=== PATIENT | female | born 1955 | race Caucasian/White ===

== ENCOUNTER 2021-02-12 10:34 | Outpatient (REF) | payer OTHER, SELFPAY ==
[2021-02-12 10:46] LABS: MANUAL DIFF FLAG NO
[2021-02-12 10:53] LABS: Basophils Absolute Auto 0.1 X10*3/uL (0.0-0.2); Basophils Percent Auto 0.8 % (0-2); Eosinophils Absolute Auto 0.1 X10*3/uL (0.0-0.4); Eosinophils Percent Auto 1.4 % (0-4); Hematocrit 44.8 % (37-47); Hemoglobin 14.6 g/dl (12.0-16.0); Imm Gran Abs Auto 0.02 X10*3/uL (0.00-0.03); Imm Gran Pct Auto 0.3 % (0.0-0.4); Lymphocytes Absolute Auto 2.3 X10*3/uL (1.2-4.9); Lymphocytes Percent Auto 32.2 % (20-40); Mean Corpuscular HGB Conc 32.6 g/dl (31.0-35.0); Mean Corpuscular Hemoglobin 30.2 pg (27.0-33.0); Mean Corpuscular Volume 92.6 fL (80-98); Mean Platelet Volume 10.3 fL (9.4-12.3); Monocytes Absolute Auto 0.7 X10*3/uL (0.1-1.2); Neutrophils Absolute Auto 4.1 X10*3/uL (2.0-8.3); Neutrophils Percent Auto 56.3 % (45-73); Platelet Count 309 X10*3/uL (160-400); Red Blood Count 4.84 X10*6/uL (4.20-5.50); Red Cell Distribution Width 12.1 % (11.0-16.0); White Blood Count 7.2 X10*3/uL (4.8-10.8)
[2021-02-12 10:58] LABS: Estimated Average Glucose 134 mg/dL; Hemoglobin A1c % 6.3 %
[2021-02-12 11:06] LABS: Glucose Urine UA NEG (NEG); Leukocyte Esterase Urine NEG (NEG); Nitrite Urine NEG (NEG); Specific Gravity - Urine 1.015 (1.005-1.025); Urine Blood NEG (NEG); Urine Ketones NEG (NEG); Urine Protein NEG (NEG-TRACE)
[2021-02-12 11:12] LABS: Appearance Urine CLEAR; Color Urine YELLOW
[2021-02-12 11:52] LABS: Creatinine Urine 63.53 mg/dL; Microalbumin Urine < 5.0 mg/L
[2021-02-12 11:58] LABS: Alanine Aminotransferase 18 U/L (0-31); Alkaline Phosphatase 79 U/L (39-117); Anion Gap 15 (12-20); Aspartate Amino Transferase 17 U/L (5-31); Bilirubin Total 0.4 mg/dL (0.0-1.0); Blood Urea Nitrogen 13 mg/dL (9-16); Calcium 9.7 mg/dL (8.4-10.2); Carbon Dioxide 28 mmol/L (22-29); Chloride 102 mmol/L (96-108); Cholesterol 218 mg/dL; Estimated Glomerular Filt Rate > 60; Glucose Fasting 131 mg/dL (60-99); HDL Cholesterol 49 mg/dL; LDL Cholesterol Calculated 134 mg/dl; Potassium 4.2 mmol/L (3.3-5.1); Sodium 141 mmol/L (135-145); Total Protein 7.7 g/dL (6.5-8.0); Triglycerides 178 mg/dL
== END 2021-02-12 10:35 | disposition home or self-care (01) ==
LOC: HO.LNP 10:34
PROVIDERS: PCP Internal Medicine; Visit Provider Internal Medicine
DX: Z00.00 Encounter for general adult medical examination without abnormal findings (principal); I10 Essential (primary) hypertension; E55.9 Vitamin D deficiency, unspecified; E11.9 Type 2 diabetes mellitus without complications; E78.00 Pure hypercholesterolemia, unspecified
CPT/HCPCS: 80053; 80061; 81003; 82043; 82306; 83036; 85025

== ENCOUNTER 2021-05-11 15:14 | Outpatient (REF) | payer OTHER, SELFPAY ==
--- NOTE | ~2021-05-11 | XR_ITS ---
EXAMINATION: XR HAND, RIGHT CLINICAL INFORMATION: Injury COMPARISON: None TECHNIQUE: PA, lateral, and oblique views of the right hand. FINDINGS: Bone alignment is normal. No fracture or dislocation is seen. There is arthritis at the first CARE HOME joint and IP joints with joint space narrowing and osteophyte formation. There may be faint soft tissue calcification or ossification adjacent to the first metacarpal bone. Soft tissues are otherwise unremarkable. XR/XR hand RT min 3V IMPRESSION: No fracture or dislocation. Arthritis at the first CARE HOME joint and IP joints.
== END 2021-05-11 15:15 | disposition home or self-care (01) ==
LOC: HO.HMGCX 15:14
PROVIDERS: PCP Internal Medicine; Visit Provider Internal Medicine
DX: S69.91XA Unspecified injury of right wrist, hand and finger(s), initial encounter (principal)
CPT/HCPCS: 73130

== ENCOUNTER 2022-02-19 10:40 | Outpatient (REF) | payer OTHER, SELFPAY ==
[2022-02-19 10:44] LABS: MANUAL DIFF FLAG NO
[2022-02-19 11:00] LABS: Basophils Absolute Auto 0.1 X10*3/uL (0.0-0.2); Basophils Percent Auto 0.9 % (0-2); Eosinophils Absolute Auto 0.1 X10*3/uL (0.0-0.4); Eosinophils Percent Auto 1.3 % (0-4); Hemoglobin 13.6 g/dl (12.0-16.0); Imm Gran Abs Auto 0.02 X10*3/uL (0.00-0.03); Imm Gran Pct Auto 0.2 % (0.0-0.4); Lymphocytes Absolute Auto 2.6 X10*3/uL (1.2-4.9); Lymphocytes Percent Auto 31.5 % (20-40); Mean Corpuscular HGB Conc 32.4 g/dl (31.0-35.0); Mean Corpuscular Hemoglobin 30.4 pg (27.0-33.0); Mean Corpuscular Volume 93.8 fL (80.0-98.0); Mean Platelet Volume 10.2 fL (9.4-12.3); Monocytes Absolute Auto 0.8 X10*3/uL (0.1-1.2); Monocytes Percent Auto 9.3 % (2-11); Neutrophils Absolute Auto 4.6 x10*3/uL (2.0-8.3); Neutrophils Percent Auto 56.8 % (45-73); Platelet Count 293 X10*3/uL (160-400); Red Blood Count 4.48 X10*6/uL (4.20-5.50); Red Cell Distribution Width 12.7 % (11.0-16.0); White Blood Count 8.2 X10*3/uL (4.8-10.8)
[2022-02-19 11:11] LABS: Estimated Average Glucose 140 mg/dL; Hemoglobin A1c % 6.5 %
[2022-02-19 11:13] LABS: Alanine Aminotransferase 16 U/L (0-31); Albumin Level 3.9 g/dL (3.5-5.0); Alkaline Phosphatase 74 U/L (39-117); Anion Gap 13 (12-20); Aspartate Amino Transferase 20 U/L (5-31); Bilirubin Total 0.5 mg/dL (0.0-1.0); Blood Urea Nitrogen 15 mg/dL (9-16); Carbon Dioxide 29 mmol/L (22-29); Chloride 101 mmol/L (96-108); Cholesterol 218 mg/dL; Estimated Glomerular Filt Rate > 60; Glucose Fasting 122 mg/dL (60-99); HDL Cholesterol 45 mg/dL; LDL Cholesterol Calculated 133 mg/dl; Potassium 4.2 mmol/L (3.3-5.1); Sodium 139 mmol/L (135-145); Total Protein 7.5 g/dL (6.5-8.0); Triglycerides 204 mg/dL
[2022-02-19 11:18] LABS: Appearance Urine CLOUDY; Color Urine YELLOW; Glucose Urine UA NEG (NEG); Leukocyte Esterase Urine 1+ (NEG); Nitrite Urine NEG (NEG); Specific Gravity - Urine >= 1.030 (1.005-1.025); Urine Blood 1+ (NEG); Urine Ketones NEG (NEG); Urine Protein 1+ MG/DL (NEG-TRACE)
[2022-02-19 11:33] LABS: Vitamin D 25-OH Total 23.4 ng/mL (>30)
[2022-02-19 11:49] LABS: Bacteria Urine 2+ /LPF; Renal Epithelial Cells Urine 3+ /LPF; Squamous Epithelial Cell Urine 1+ /LPF; WBC Urine 50-75 /HPF (0-4)
[2022-02-19 11:50] LABS: Calcium Oxalate Crystals Urine 1+ /LPF
[2022-02-19 12:25] LABS: Creatinine Urine 311.52 mg/dL
== END 2022-02-19 10:41 | disposition home or self-care (01) ==
LOC: HO.LNP 10:40
PROVIDERS: Visit Provider Internal Medicine
DX: Z00.00 Encounter for general adult medical examination without abnormal findings (principal); E78.00 Pure hypercholesterolemia, unspecified; E11.9 Type 2 diabetes mellitus without complications; E55.9 Vitamin D deficiency, unspecified; I10 Essential (primary) hypertension
CPT/HCPCS: 80053; 80061; 81001; 81003; 82043; 82306; 83036; 85025

== ENCOUNTER 2022-02-22 10:20 | Outpatient (REF) | payer OTHER, SELFPAY | END 2022-02-22 10:21 | disposition home or self-care (01) | LOC: HO.LNP 10:20 | PROVIDERS: PCP Internal Medicine; Visit Provider Internal Medicine | DX: N39.0 Urinary tract infection, site not specified (principal); R31.9 Hematuria, unspecified | CPT/HCPCS: 87086 ==

== ENCOUNTER 2022-02-26 15:42 | Outpatient (REF) | payer OTHER, SELFPAY ==
[2022-02-26 15:57] LABS: Appearance Urine CLOUDY; Color Urine YELLOW; Glucose Urine UA NEG (NEG); Leukocyte Esterase Urine 2+ (NEG); Nitrite Urine NEG (NEG); PH 5.5 (5.0-8.0); Specific Gravity - Urine >= 1.030 (1.005-1.025); Urine Blood TRACE (NEG); Urine Ketones NEG (NEG); Urine Protein TRACE MG/DL (NEG-TRACE)
[2022-02-26 16:42] LABS: Bacteria Urine 2+ /LPF; Calcium Oxalate Crystals Urine 1+ /LPF; RBC Urine 0-2 /HPF (0); Squamous Epithelial Cell Urine TRACE /LPF
== END 2022-02-26 15:43 | disposition home or self-care (01) ==
LOC: HO.LNP 15:42
PROVIDERS: Visit Provider Internal Medicine
DX: R31.9 Hematuria, unspecified (principal)
CPT/HCPCS: 81001

== ENCOUNTER 2023-02-27 11:44 | Outpatient (REF) | payer OTHER, SELFPAY ==
[2023-02-27 11:48] LABS: MANUAL DIFF FLAG NO
[2023-02-27 12:05] LABS: Appearance Urine Cloudy; Color Urine Yellow; Glucose Urine UA Negative (Negative); Leukocyte Esterase Urine Large (3+) (Negative); Nitrite Urine Negative (Negative); PH 6.5 (5.0-9.0); Specific Gravity - Urine 1.015 (1.005-1.025); UMIC TRIGGER UACC YES; Urine Blood Trace (Negative); Urine Ketones Negative (Negative); Urine Protein Trace mg/dL (Neg-Trace)
[2023-02-27 12:07] LABS: Bacteria Urine 1+ (None Seen); Hyaline Casts Urine 0-2 /LPF (0-2); RBC Urine 0-2 /HPF (0-2); Squamous Epithelial Cell Urine >20 /HPF (0-2); UACC Culture Trigger YES; WBC Urine >50 /HPF (0-5)
[2023-02-27 12:12] LABS: Basophils Absolute Auto 0.1 X10*3/uL (0.0-0.2); Basophils Percent Auto 0.7 % (0-2); Eosinophils Absolute Auto 0.2 X10*3/uL (0.0-0.4); Eosinophils Percent Auto 2.5 % (0-4); Hematocrit 41.4 % (37.0-47.0); Hemoglobin 13.6 g/dl (12.0-16.0); Imm Gran Abs Auto 0.04 X10*3/uL (0.00-0.03); Imm Gran Pct Auto 0.5 % (0.0-0.4); Lymphocytes Absolute Auto 2.8 X10*3/uL (1.2-4.9); Lymphocytes Percent Auto 34.6 % (20-40); Mean Corpuscular HGB Conc 32.9 g/dl (31.0-35.0); Mean Corpuscular Hemoglobin 29.8 pg (27.0-33.0); Mean Corpuscular Volume 90.8 fL (80.0-98.0); Monocytes Absolute Auto 0.7 X10*3/uL (0.1-1.2); Monocytes Percent Auto 8.7 % (2-11); Neutrophils Absolute Auto 4.3 x10*3/uL (2.0-8.3); Platelet Count 291 X10*3/uL (160-400); Red Blood Count 4.56 X10*6/uL (4.20-5.50); Red Cell Distribution Width 12.7 % (11.0-16.0); White Blood Count 8.2 X10*3/uL (4.8-10.8)
[2023-02-27 12:15] LABS: Anion Gap 11 (12-20)
[2023-02-27 12:34] LABS: Vitamin D 25-OH Total 22.9 ng/mL (>30)
[2023-02-27 12:48] LABS: Alanine Aminotransferase 19 U/L (0-31); Albumin Level 3.7 g/dL (3.5-5.0); Alkaline Phosphatase 78 U/L (39-117); Aspartate Amino Transferase 20 U/L (5-31); Bilirubin Total 0.8 mg/dL (0.0-1.0); Blood Urea Nitrogen 11 mg/dL (9-16); Calcium 9.2 mg/dL (8.4-10.2); Carbon Dioxide 29 mmol/L (22-29); Chloride 104 mmol/L (96-108); Cholesterol 227 mg/dL; Estimated Glomerular Filt Rate > 60; Glucose Fasting 146 mg/dL (60-99); HDL Cholesterol 40 mg/dL; LDL Cholesterol Calculated 149 mg/dl; Potassium 4.2 mmol/L (3.3-5.1); Sodium 140 mmol/L (135-145); Triglycerides 193 mg/dL
[2023-02-27 13:07] LABS: Creatinine Urine 127.58 mg/dL; Microalbum/Creatinine Ratio Ur 16.4 ug/mg cr
[2023-02-27 14:17] LABS: Estimated Average Glucose 166 mg/dL; Hemoglobin A1c % 7.4 %
== END 2023-02-27 11:45 | disposition home or self-care (01) ==
LOC: HO.LNP 11:44
PROVIDERS: Visit Provider Internal Medicine
DX: Z00.00 Encounter for general adult medical examination without abnormal findings (principal); I10 Essential (primary) hypertension; E55.9 Vitamin D deficiency, unspecified; E11.9 Type 2 diabetes mellitus without complications; R82.90 Unspecified abnormal findings in urine
CPT/HCPCS: 80053; 80061; 81001; 82043; 82306; 83036; 85025; 87086

== ENCOUNTER 2024-11-23 08:30 | Outpatient (REF) | payer OTHER, SELFPAY ==
[2024-11-23 10:52] LABS: MANUAL DIFF FLAG NO
[2024-11-23 11:02] LABS: Basophils Absolute Auto 0.1 X10*3/uL (0.0-0.2); Basophils Percent Auto 0.8 % (0-2); Eosinophils Absolute Auto 0.1 X10*3/uL (0.0-0.4); Hematocrit 43.6 % (37.0-47.0); Hemoglobin 14.4 g/dl (12.0-16.0); Imm Gran Abs Auto 0.01 X10*3/uL (0.00-0.03); Imm Gran Pct Auto 0.1 % (0.0-0.4); Lymphocytes Absolute Auto 2.9 X10*3/uL (1.2-4.9); Lymphocytes Percent Auto 36.1 % (20-40); Mean Corpuscular Hemoglobin 29.8 pg (27.0-33.0); Mean Corpuscular Volume 90.1 fL (80.0-98.0); Mean Platelet Volume 10.6 fL (9.4-12.3); Monocytes Absolute Auto 0.6 X10*3/uL (0.1-1.2); Monocytes Percent Auto 7.7 % (2-11); Neutrophils Absolute Auto 4.3 x10*3/uL (2.0-8.3); Neutrophils Percent Auto 54.3 % (45-73); Platelet Count 291 X10*3/uL (160-400); Red Blood Count 4.84 X10*6/uL (4.20-5.50); Red Cell Distribution Width 12.7 % (11.0-16.0); White Blood Count 7.9 X10*3/uL (4.8-10.8)
[2024-11-23 11:17] LABS: Appearance Urine Turbid; Color Urine Dark Yellow; Glucose Urine UA Negative (Negative); Leukocyte Esterase Urine Large (3+) (Negative); Nitrite Urine Negative (Negative); Specific Gravity - Urine 1.025 (1.005-1.025); UMIC TRIGGER UACC YES; Urine Blood Negative (Negative); Urine Ketones Trace mg/dL (Negative); Urine Protein 30 (1+) mg/dL (Neg-Trace)
[2024-11-23 11:18] LABS: Estimated Average Glucose 235 mg/dL; Hemoglobin A1C 321.1948 umol/L; Hemoglobin A1c % 9.8 % (<6.0); Total Hemoglobin (HGBA1C) 3856.0448 umol/L
[2024-11-23 11:31] LABS: Bacteria Urine 4+ (None Seen); RBC Urine 0-2 /HPF (0-2); Squamous Epithelial Cell Urine >20 /HPF (0-2); UACC Culture Trigger YES; WBC Urine >50 /HPF (0-5)
[2024-11-23 11:43] LABS: Alanine Aminotransferase 24 U/L (0-31); Alkaline Phosphatase 86 U/L (39-117); Anion Gap 15 (12-20); Aspartate Amino Transferase 28 U/L (5-31); Bilirubin Total 0.6 mg/dL (0.0-1.0); Blood Urea Nitrogen 13 mg/dL (9-16); Calcium 9.5 mg/dL (8.4-10.2); Carbon Dioxide 27 mmol/L (22-29); Chloride 100 mmol/L (96-108); Cholesterol 225 mg/dL (<200); Estimated Glomerular Filt Rate > 60; Glucose Fasting 175 mg/dL (60-99); HDL Cholesterol 44 mg/dL (>40); LDL Cholesterol Calculated 148 mg/dL (<100); Potassium 3.7 mmol/L (3.3-5.1); Sodium 138 mmol/L (135-145); Total Protein 8.5 g/dL (6.5-8.0); Triglycerides 166 mg/dL (<150); Vitamin D 25-OH Total 60.4 ng/mL (>30)
[2024-11-23 12:21] LABS: Creatinine Urine 299.02 mg/dL; Microalbum/Creatinine Ratio Ur 22.7 ug/mg cr (<30)
== END 2024-11-23 08:31 | disposition home or self-care (01) ==
LOC: HO.LNP 08:30
PROVIDERS: Visit Provider Internal Medicine
DX: I10 Essential (primary) hypertension (principal); E55.9 Vitamin D deficiency, unspecified; E11.9 Type 2 diabetes mellitus without complications; E78.00 Pure hypercholesterolemia, unspecified
CPT/HCPCS: 80053; 80061; 81001; 81003; 82043; 82306; 82570; 83036; 85025; 87086

== ENCOUNTER 2025-02-28 10:23 | Outpatient (REF) | payer BC, SELFPAY ==
[2025-02-28 10:44] LABS: Alanine Aminotransferase 19 U/L (0-31); Albumin Level 3.9 g/dL (3.5-5.0); Aspartate Amino Transferase 24 U/L (5-31); Bilirubin Direct 0.2 mg/dL (0.0-0.5); Bilirubin Total 0.5 mg/dL (0.0-1.0); Cholesterol 216 mg/dL (<200); Estimated Average Glucose 148 mg/dL; Glucose Fasting 126 mg/dL (60-99); HDL Cholesterol 52 mg/dL (>40); Hemoglobin A1C 176.5921 umol/L; Hemoglobin A1c % 6.8 % (<6.0); LDL Cholesterol Calculated 129 mg/dL (<100); Total Hemoglobin (HGBA1C) 3497.6211 umol/L; Total Protein 7.6 g/dL (6.5-8.0); Triglycerides 175 mg/dL (<150)
[2025-02-28 10:51] LABS: Alkaline Phosphatase 80 U/L (39-117)
[2025-02-28 10:59] LABS: Reflex LDLD? No
--- OUTSIDE RECORDS SUMMARY | 2025-02-28 12:08 | XMS_ITS | Encounter Summary ---
Author Organization [facility] Address [address] [place] [address] Care Team Providers Care Food Porter Name Role Phone Luis Manuel Eddy MD Primary Care Provider [phone] Encounter Details Date Type Department Care Team (Latest Contact Info) Description 02/22/2025 Lab Requisition [facility] - Main Lab 299 [facility] [place] [address] Luis Manuel Eddy MD [address] [phone] Encounter for gynecological examination (general) (routine) without abnormal findings Social History Tobacco Use Types Packs/Day Years Used Date Smoking Tobacco: Never Assessed Comments Unknown Sex and Gender Information Value Date Recorded Sex Assigned at Not on file Legal Sex Female 6:51 PM EST Gender Identity Not on file Sexual Orientation Not on file documented as of this encounter Plan of Treatment Upcoming Encounters Date Type Department Care Team (Late st Contact Info) Description 03/04/2025 1:30 PM EDT [facility]ointment [facility] [address] [place] [address] documented as of this encounter Procedures Procedure Name Priority Date/Time Associated Diagnosis Comments PAP SMEAR Routine 02/21/2025 12:00 AM EDT Encounter for gynecological examination (general) (routine) without abnormal findings documented in this encounter Results * Pap smear (02/21/2025 12:00 AM EDT) Interpretation Negative for intraepithelial lesion or malignancy 02/24/2025 10:59 AM EDT [facility] General Categorization Negative 02/24/2025 10:59 AM EDT [facility] Specimen Adequacy Satisfactory for evaluation, endocervical/crane sformation zone component present 02/24/2025 10:59 AM EDT [facility] Pap Methodology Liquid Based Pap Test 02/24/2025 10:59 AM EDT [facility] Disclaimer The Pap test is a screening test which carries an inherent false negative rate. These test results should be correlated with the patient's clinical findings and history. This Pap test was processed using an automated screening system. Technical cytopathology services provided by [facility], at [address] [place] [id number] (CLIA # [id number]/Brett Amin MD, Line Erector.) 02/24/2025 10:59 AM [facility] Console Pap Interpretation Reported 02/24/2025 10:59 AM [facility] Brushing/Spatula Cervix uteri structure / Unknown 02/21/2025 02/22/2025 7:14 AM EDT us Luis Manuel Eddy MD LAB CYTOLOGY ORDERABLES Final Result Performing Organization Address City/State/[facility] Co de Phone Number [facility] [address] [place] [address], documented in this encounter Visit Diagnoses Diagnosis Encounter for gynecological examination (general) (routine) without abnormal findings documented in this encounter Care Teams Food Porter Relationship Specialty Start Date End Date Luis Manuel Eddy MD [address] [phone] PCP - General Obstetrics and Gynecology 02/21/25 documented as of this encounter
--- OUTSIDE RECORDS SUMMARY | 2025-02-28 12:08 | XMS_ITS | Clinical Summary ---
Author Organization 299 [facility] Address [address] [place] [address] Phone Care Team Providers Care Call Center Agent Name Role Phone Luis Manuel Eddy MD Primary Care Provider [phone] Encounters Date Type Department Care Team Description 02/22/2025 Lab Requisition [facility] - Main Lab [address] [place] [address] Luis Manuel Eddy MD Encounter for gynecological examination (general) (routine) without abnormal findings from Last 3 Months Social History Tobacco Use Types Packs/Day Years Used Date Smoking Tobacco: Never Assessed Comments Unknown Sex and Gender Information Value Date Recorded Sex Assigned at Not on file Legal Sex Female 6:51 PM EST Gender Identity Not on file Sexual Orientation Not on file Plan of Treatment Upcoming Encounters Date Type Department Care Team (Late st Contact Info) Description 03/04/2025 1:30 PM EDT Appointment [facility] [address] [place] [address] Health Maintenance Due Date Last Done Comments DTaP,Tdap,and Td Vaccines (1 - Tdap) 1974 Pneumococcal Vaccine: 50+ Years (1 of 1 - PCV) 2005 Zoster Vaccines (1 of 2) 2005 Breast Cancer Screening 02/08/2024 02/08/20, 05/17/2019 COVID-19 Vaccine ( - 2023-2 5 season) 2024 Colorectal Cancer Screening: Colonoscopy 02/22/2025 Depression Screening 02/22/2025 Falls Risk Assessment 02/22/2025 Hepatitis C Screening 02/22/2025 Medicare Annual Wellness Visit 02/22/2025 Osteoporosis Screening (Bone Density Screening) 02/22/2025 Social Influencers of Health Screening 02/22/2025 Influenza Vaccine (Season Ended) 2025 RSV Immunization Adult Patients (1 - 1-dose 75+ series) 2030 HIB Vaccines Aged Out No longer eligi ble based on patient's age to complete this topic HPV Vaccines Aged Out No longer eligi ble based on patient's age to complete this topic Hepatitis A Vaccines Aged Out No long er eligible based on patient's age to complete this topic Hepatitis B Vaccines Aged Out No long er eligible based on patient's age to complete this topic IPV Vaccines Aged Out No longer eligi ble based on patient's age to complete this topic MMR Vaccines Aged Out No longer eligi ble based on patient's age to complete this topic Meningococcal ACWY Vaccine Aged Out N o longer eligible based on patient's age to complete this topic Meningococcal B Vaccine Aged Out No l onger eligible based on patient's age to complete this topic RSV Immunization Patients Under 20 months Aged Out No longer eligible b ased on patient's age to complete this topic Varicella Vaccines Aged Out No longer eligible based on patient's age to complete this topic Procedures Procedure Name Priority Date/Time Associated Diagnosis Comments PAP SMEAR Routine 02/21/2025 12:00 AM EDT Encounter for gynecological examination (general) (routine) without abnormal findings JENNIFER SCREENING DIGITAL Routine 02/07/2022 7:12 PM EDT Encounter for screening mammogram for malignant neoplasm of breast from Last 3 Months or Most Recently Relevant to Health Maintenance Results * Pap smear (02/21/2025 12:00 AM EDT) Interpretation Negative for intraepithelial lesion or malignancy 02/24/2025 10:59 AM EDT [facility] General Categorization Negative 02/24/2025 10:59 AM EDT [facility] Specimen Adequacy Satisfactory for evaluation, endocervical/crane sformation zone component present 02/24/2025 10:59 AM EDT [facility] Pap Methodology Liquid Based Pap Test 02/24/2025 10:59 AM EDT [facility] Disclaimer The Pap test is a screening test which carries an inherent false negative rate. These test results should be correlated with the patient's clinical findings and history. This Pap test was processed using an automated screening system. Technical cytopathology services provided by [facility], at [address] [place] [address] (CLIA # [id number]/Brett Amin MD, Food Service Ambassador.) 02/24/2025 10:59 AM EDT [facility] Console Pap Interpretation Reported 02/24/2025 10:59 AM EDT [facility] Brushing/Spatula Cervix uteri structure / Unknown 02/21/2025 02/22/2025 7:14 AM EDT us Luis Manuel Eddy MD LAB CYTOLOGY ORDERABLES Final Result [facility] [address] [place] [address], * JENNIFER SCREENING DIGITAL (02/07/2022 7:12 PM EDT) Anatomical Region Laterality Modality Mammography 02/07/2022 10:2 2 AM EDT Narrative 02/07/2022 7:12 PM EDT [facility] Diagnostic Imaging Department [address] [place] [address] Patient: ??KAYCEE HANSON ?/Age/Sex: 1955 - - Unit#: ??[id number] ? Location/Status: ??SPDIMAM/REG CLI ? Mnemonic/Ordering Site: ??DIGSC/SPMAM Ordering Physician: ??VÍCTOR HANNAH MD Jennifer Screening Digital - 02/07/22 - 1057 History: Bilateral breast cancer screening. Technique: Digital mammography. Conventional CC and MLO projections with tomosynthesis MLO views and computer aided detection. Comparison: [facility] 05/17/2019, dating back to 08/30/2010. Findings: ??Breast tissue consists of a combination of fatty and fibroglandular elements (category b density) (as calculated by [employer] software). There are benign calcifications bilaterally. ??No suspicious group of calcification, architectural distortion, suspicious mass or suspicious asymmetry. Impression: ??No evidence of malignancy. BIRADS Category 2, benign findings, 3342F [address], [address] Note: Patient information entered into a reminder system with a target due date for the next mammogram: ??CPT II 7025F Dictating Physician: ??KETAN RED MD Electronically Signed by: ??KETAN RED MD Dic Date/Time: ??02/07/221903 Sign date/Time: ??02/07/221911 Procedure Note Ketan Red MD - 10/23/2022 [facility] Diagnostic Imaging Department [address] [place], [place] [id number] Patient: KAYCEE HANSON /Age/Sex: 1955 - 67 - F Unit#: [id number] Location/Status: SPDIMAM/REG CLI Mnemonic/Ordering Site: DIGSC/SPMAM Ordering Physician: VÍCTOR HANNAH MD Jennifer Screening Digital - 02/07/22 - 1057 History: Bilateral breast cancer screening. Technique: Digital mammography. Conventional CC and MLO projections with tomosynthesis MLO views and computer aided detection. Comparison: [facility] 05/17/2019, dating back to 08/30/2010. Findings: Breast tissue consists of a combination of fatty andfibroglandular elements (category b density) (as calculated by [employer] software).There are benign calcifications bilaterally. No suspicious group ofcalcification, architectural distortion, suspicious mass or suspicious asymmetry. Impression: No evidence of malignancy. BIRADS Category 2, benign findings, 3342F [address], [address] Note: Patient information entered into a reminder system with a target duedate for the next mammogram: CPT II 7025F Dictating Physician: KETAN RED MD Electronically Signed by: KETAN RED MD Dic Date/Time: 02/07/221903 Sign date/Time: 02/07/221911 Víctor Hannah MD IMG BI PROCEDURES Final Result from Last 3 Months or Most Recently Relevant to Health Maintenance Insurance [employer] - [place] MEDICARE ADVANTAGE Care Teams Call Center Agent Relationship Specialty Start Date End Date Luis Manuel Eddy MD [address] [place] [phone] PCP - General Obstetrics and Gynecology 02/21/25
== END 2025-02-28 10:24 | disposition home or self-care (01) ==
LOC: HO.LNP 10:23
PROVIDERS: Visit Provider Internal Medicine
DX: E11.9 Type 2 diabetes mellitus without complications (principal); E78.00 Pure hypercholesterolemia, unspecified
CPT/HCPCS: 80061; 80076; 82947; 83036

== ENCOUNTER 2025-05-20 10:00 | Day surgery (SDC) | payer MEDICARE, SELFPAY ==
--- OUTSIDE RECORDS SUMMARY | 2025-04-19 15:13 | XMS_ITS | Patient Health Record ---
Author Organization [facility] Address [address] [place] [address] Care Team Providers Care Supervisor Shop Name Role Phone Sada CLOLADO, Gordy Primary Care Provider Estevan Mcdonald Jr Unavailable [phone] Allergies No Known Allergies Reason For Referral No Information Medications Medication SIG (Take, Route, Frequency, Duration) Notes Start Date End Date Status Multi Vitamin/Minerals - as directed Ora lly once a day Active Vitamin D 2000 UNIT 1 tablet Orally Once a day for 30 day(s) Active amLODIPine Besylate 5 MG 1 tablet Orally Once a day Active Losartan Potassium-HCTZ 100-12.5 MG take 1 tablet by mouth once daily Oral for 90 Active Losartan Potassium 100 MG 1 tablet Orall y Once a day Active hydroCHLOROthiazide 12.5 MG 1 capsule in the morning Orally Once a day Active metFORMIN HCl 500 MG 1 tablet with a suzette l Orally Once a day Active Immunizations Vaccine Route Administration Date Status Comme nts Influenza Unknown 10/10/2018 Administered Influenza Unknown 07/20/2024 Administered Problems Problem Type SNOMED Code ICD Code Onset Dates Problem Status W/U Status Risk Notes Problem 229154350 Colon cancer screening (Z12.11) Active confirmed Problem Screening for malignant neoplasm of colon (614120169) Encounter for screening for malignant neoplasm of colon (Z12.11) Active confirmed Problem Abdominal bloating (900716655) Abdominal bloating (R14.0) Active confirmed Problem Pre-procedure evaluation check (652421066) Encounter for other preprocedural examination (Z01.818) Active confirmed Problem Loose stools (803323747) Loose stools (R19.5) Active confirmed Problem 22520830 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 Vital Signs Temperature 97.1 degrees Fahrenheit 04/18/2025 Blood pressure diastolic 01 mm Hg 04/18/2025 Height 64 in 04/18/2025 Blood pressure systolic 001 mm Hg 04/18/2025 Weight 182.4 lbs 04/18/2025 BMI 31.31 kg/m2 04/18/2025 Encounters Encounter Location Date Provider Diagnosis [facility] [address] [facility] [address] [place] [address] 04/18/2025 Estevan Mendoza Jr Encounter for other preprocedural examination Z01.818 ; Loose stools R19.5 ; Encounter for screening for malignant neoplasm of colon Z12.11 and Abdominal bloating R14.0 Assessments Encounter Date Diagnosis (ICD Code) Assessment Notes Treatment Notes Treatment Clinical Notes Section Notes 04/18/2025 Encounter for other preprocedural examination (ICD-10 - Z01.818) We discussed colonoscopy today. We discussed risks and benefits of the procedure today. She understands these and agrees to proceed. She is advised to stop metformin and hydrochlorothiazide the day before the procedure. 04/18/2025 Loose stools (ICD-10 - R19.5) We discussed colonoscopy today. We discussed risks and benefits of the procedure today. She understands these and agrees to proceed. She is advised to stop metformin and hydrochlorothiazide the day before the procedure. 04/18/2025 Encounter for screening for malignant neoplasm of colon (ICD-10 - Z12.11) We discussed colonoscopy today. We discussed risks and benefits of the procedure today. She understands these and agrees to proceed. She is advised to stop metformin and hydrochlorothiazide the day before the procedure. 04/18/2025 Abdominal bloating (ICD-10 - R14.0) We discussed colonoscopy today. We discussed risks and benefits of the procedure today. She understands these and agrees to proceed. She is advised to stop metformin and hydrochlorothiazide the day before the procedure. Plan Of Treatment Future Test Test Name Order Date COLONOSCOPY 06/30/2013 COLONOSCOPY 04/07/2019 COLONOSCOPY 04/18/2025 Next Appt Details Provider Name:Estevan vazquez Jr, 05/20/2025 11:50:00 AM, [address] [facility] , [place], [place], [phone], Insurance Providers Payer Name Payer Address Payer Phone Subscriber Number Group Number Insured Name Patient Relationship to Insured Coverage Start Date Coverage End Date [facility] [address] [place] [address] [id number] KAYCEE HANSON Self - patient is the insured Medical (General) History Medical History History ICD Code Hypertension Diabetes mellitus, type II Colonoscopy 09/21, tubular adenoma, 5-ye ar follow-up Surgical History Surgery Date(Month/Year) uterine ablation benign breast biopsy
[2025-05-17 14:14] VITALS: BMI 31.3
--- NOTE | 2025-05-19 10:04 | HO.ANESPROP2 ---
Documented by User: Saira Bertrand NP 05/19/25 10:07 HPI - Anesthesia Eval Consult details Narrative: 70yo F for Colonoscopy [facility] Past Medical History Medical History HX: benign breast biopsy HTN (hypertension) Diabetes Surgical History Surgical History History of endometrial ablation H/O colonoscopy Social History Social History (Updated 05/17/25 @ 14:14 by Kesha Sosa RN) Patient Tobacco Use Status: Never used Tobacco Use of substances other than those prescribed or required for medical reasons: No Are you DNR?: No Advance Directives: No Advance Directives Information Provided: Yes Meds Allergies Allergy/AdvReac Type Severity Reaction Status Date / Time No Known Allergies Allergy Verified 05/17/25 14:14 Home Medications ?Medication ?Instructions ?Recorded ?Confirmed ?Last Taken ?Type amlodipine 5 mg tablet 5 mg PO DAILY 05/17/25 05/17/25 Unknown History cholecalciferol (vitamin D3) 50 50 mcg PO DAILY 05/17/25 05/17/25 Unknown History mcg (2,000 unit) capsule (Vitamin D3) hydrochlorothiazide 12.5 mg tablet 12.5 mg PO DAILY 05/17/25 05/17/25 Unknown History losartan 100 mg tablet 100 mg PO DAILY 05/17/25 05/17/25 Unknown History metformin 500 mg tablet 500 mg PO BID 05/17/25 05/17/25 Unknown History multivitamin 1 tab PO DAILY 05/17/25 05/17/25 Unknown History Exam Height,Weight and Vital Signs: Height 5 ft 4 in Weight 82.735 kg Assessment and Plan Assessment Anesthesia Assessment: Chart Reviewed Documented by User: Trinidad Nunez MD 05/20/25 12:12 [facility] Past Medical History Medical History HX: benign breast biopsy HTN (hypertension) Diabetes Family History Family history of problems with anesthesia: No Surgical History Surgical History History of endometrial ablation H/O colonoscopy History of Problems with Anesthesia: No Social History Social History (Updated 05/17/25 @ 14:14 by Kesha Sosa RN) Patient Tobacco Use Status: Never used Tobacco Use of substances other than those prescribed or required for medical reasons: No Are you DNR?: No Advance Directives: No Advance Directives Information Provided: Yes Meds Allergies Allergy/AdvReac Type Severity Reaction Status Date / Time No Known Allergies Allergy Verified 05/17/25 14:14 Home Medications ?Medication ?Instructions ?Recorded ?Confirmed ?Last Taken ?Type amlodipine 5 mg tablet 5 mg PO DAILY 05/17/25 05/17/25 Unknown History cholecalciferol (vitamin D3) 50 50 mcg PO DAILY 05/17/25 05/17/25 Unknown History mcg (2,000 unit) capsule (Vitamin D3) hydrochlorothiazide 12.5 mg tablet 12.5 mg PO DAILY 05/17/25 05/17/25 Unknown History losartan 100 mg tablet 100 mg PO DAILY 05/17/25 05/17/25 Unknown History metformin 500 mg tablet 500 mg PO BID 05/17/25 05/17/25 Unknown History multivitamin 1 tab PO DAILY 05/17/25 05/17/25 Unknown History Exam Airway Mallampati Class: III TM Dist: >3cm Neck ROM: Full Assessment and Plan Assessment Anesthesia Assessment: Anesthesia Plan Discussed Final Anesthetic Review Family History of Problems with Anesthesia: No History of Problems with Anesthesia: No ASA Class: I Final Preanesthetic Review: No Changes in Pt Med Stat, Meds/Allgs Chart Reviewed, Consent Obtained/Reviewed and Anes Risks/Benef Reviewed Patient Risk: Intermediate Procedure Risk: Low Anesthetic Plan Anesthetic Plan: TIVA Disposition: Standard PACU
[2025-05-20 10:25] VITALS: BMI 30.7
[2025-05-20 10:31] VITALS: BP 146/59; PULSE 77; RESP 15; TEMP 36.3; O2SAT 96
[2025-05-20 10:47] LABS: Glucose, Whole Blood 136 mg/dL (60-115)
[2025-05-20] MEDS: Lactated Ringers 1,000 ML 100 ML IVCONT (10:51)
--- NOTE | 2025-05-20 11:40 | P.HPSUR_ITS ---
Pre-Procedural Eval Section A - 24 Hr Update-Section A only Date of Service: 05/20/25 Section B - Complete if H&P > 30 days Chief Complaint: Encounter for screening for malignant neoplasm of Details of Present Illness: see H&P no changes Relevant Family History (Specify if Yes): No Relevant Social History: None Present Medications: see Short Stay Collaborative assessment Medical History: No relevant PMH History of Previous Operations: No relevant previous surgery Allergies: Allergies Allergy/AdvReac Type Severity Reaction Status Date / Time No Known Allergies Allergy Verified 05/17/25 14:14 Review of Systems Sugical H&P ROS: Negative: Constitution, Cardiovascular, Respiratory, Neurological, Psychiatric, Hem-Onc, Allergic/Immunologic, Gastrointestinal, Genitourinary, Musculoskeletal, Integumentary, Endocrine and Eyes/Ears/No se/Throat Exam Surgical H&P Exam: Normal: HEENT, Normal: Heart, Normal: Lungs, Normal: Extremities, Normal: Abdomen, Normal: Skin and Normal: Neurological Plan Diagnosis/Plan: Unchanged I have reviewed the history and physical and performed a pertinent physical examination on my patient. No changes have occurred unless specified. Time Spent With Patient Time: Total time managing care of this patient today ____ minutes.
[2025-05-20 12:28] VITALS: BP 130/58; PULSE 64; RESP 18; TEMP 36.9; O2SAT 98
[2025-05-20 12:30] VITALS: BP 135/66; PULSE 61; RESP 18; O2SAT 98
[2025-05-20 12:45] VITALS: BP 156/69; PULSE 54; RESP 18; TEMP 36.6; O2SAT 98
--- NOTE | 2025-05-20 19:47 | OP_ITS ---
DATE OF SERVICE: 05/20/2025 SURGEON: Estevan Mendoza MD INDICATIONS: Colon cancer screening and prior history of adenomatous colon polyps. PREOPERATIVE DIAGNOSIS: POSTOPERATIVE DIAGNOSIS: PROCEDURE PERFORMED: Colonoscopy to the terminal ileum. ESTIMATED BLOOD LOSS: COMPLICATIONS: ANESTHESIA: Monitored anesthesia care. ASSISTANTS: SPECIMENS: DESCRIPTION OF PROCEDURE: History and physical performed. The risks and benefits of the procedure were explained to the patient. Informed consent was obtained. The patient was placed in the left lateral decubitus position. A digital rectal exam was performed and was found to be normal. The Olympus pediatric videocolonoscope was introduced into the rectum and advanced to the cecum. The cecum was identified by transillumination, palpation, and identification of ileocecal valve. Abdominal wall pressure was used to assist in advancement of the scope. Examination was performed. The scope was removed. She tolerated both the procedure well and was taken to recovery room in stable condition. FINDINGS: The terminal ileum was briefly glimpsed. This appeared normal. The visualized colonic mucosa was normal. The quality of the prep was good. No polyps were identified. Retroflexed examination showed small internal hemorrhoids. There was mild sigmoid diverticulosis. IMPRESSION: Normal colonoscopy. RECOMMENDATION: 1. Follow up as needed. 2. Repeat colonoscopy is recommended in 10 years for average-risk individuals. MD VY Rowell/ALETA / [phone]
== END 2025-05-20 13:17 | disposition home or self-care (01) ==
PROVIDERS: PCP Internal Medicine; Visit Provider Internal Medicine Gastroenterology
PROC: 0DJD8ZZ Inspection of Lower Intestinal Tract, Via Natural or Artificial Opening Endoscopic (ICD-10-PCS; CPT 45378; principal; 2025-05-20 11:20)
DX: Z12.11 Encounter for screening for malignant neoplasm of colon (principal); Z86.0101 Personal history of adenomatous and serrated colon polyps; Z83.719 Family history of colon polyps, unspecified; K62.1 Rectal polyp; K57.30 Diverticulosis of large intestine without perforation or abscess without bleeding; K64.8 Other hemorrhoids; R19.7 Diarrhea, unspecified; R14.0 Abdominal distension (gaseous); I10 Essential (primary) hypertension; E11.9 Type 2 diabetes mellitus without complications; Z79.84 Long term (current) use of oral hypoglycemic drugs; Z79.899 Other long term (current) drug therapy; Z98.890 Other specified postprocedural states
CPT/HCPCS: 45380; 82947; 88305; J2003; J2704